=== PATIENT | female | born 1985 | race Caucasian/White ===

== ENCOUNTER 2017-05-11 09:56 | Emergency (ER) | payer OTHER ==
[2017-05-11 10:08] VITALS: BP 111/72
[2017-05-11] MEDS ORDERED: TORADOL IM ONE (10:41)
--- NOTE | 2017-05-11 10:46 | Emergency Department Report ---
ED ENT HPI - General Chief complaint: Dental/Oral Stated complaint: TOOTH ACHES Time Seen by Provider: 05/11/17 10:10 Source: patient Mode of arrival: Ambulatory Limitations: No Limitations - History of Present Illness Initial comments: This is a 31-year-old female nontoxic, well nourished in appearance, no acute signs of distress presents to the ED with c/o of acute on chronic toothache. Patient stated toothache has been getting worse over the days. Patient denies any facial swelling, fever, chills, nausea, vomiting, headache or stiff neck. She denies any chest pain or shortness of breath. Patient denies any drooling or hoarseness. Denies any allergies or significant past medical history. MD complaint: tooth pain -: year(s) Location: tooth # (13) 1 - toothache Severity: mild Severity scale (0 -10): 8 Quality: aching Consistency: constant Improves with: none Worsens with: none Associated Symptoms: gum swelling, toothache. denies: fever, cough, pain with swallowing, sore throat, tinnitus, hearing loss, discharge from ear, rhinorrhea - Related Data Previous Rx's Medication Instructions Recorded Last Taken Type Chlorhexidine Mouthwash [Peridex] 15 ml MM BID #1 bottle 05/11/17 Unknown Rx Clindamycin [Clindamycin CAP] 450 mg PO Q8HR 7 Days capsule 05/11/17 Unknown Rx Ibuprofen [Motrin] 600 mg PO Q8H PRN #30 tablet 05/11/17 Unknown Rx traMADol [Ultram] 50 mg PO Q6HR PRN #12 tablet 05/11/17 Unknown Rx Allergies Allergy/AdvReac Type Severity Reaction Status Date / Time No Known Allergies Allergy Unverified 05/11/17 10:08 ED Dental HPI - General Chief complaint: Dental/Oral Stated complaint: TOOTH ACHES Time Seen by Provider: 05/11/17 10:10 Source: patient Mode of arrival: Ambulatory Limitations: No Limitations - Related Data Previous Rx's Medication Instructions Recorded Last Taken Type Chlorhexidine Mouthwash [Peridex] 15 ml MM BID #1 bottle 05/11/17 Unknown Rx Clindamycin [Clindamycin CAP] 450 mg PO Q8HR 7 Days capsule 05/11/17 Unknown Rx Ibuprofen [Motrin] 600 mg PO Q8H PRN #30 tablet 05/11/17 Unknown Rx traMADol [Ultram] 50 mg PO Q6HR PRN #12 tablet 05/11/17 Unknown Rx Allergies Allergy/AdvReac Type Severity Reaction Status Date / Time No Known Allergies Allergy Unverified 05/11/17 10:08 ED Review of Systems ROS: Stated complaint: TOOTH ACHES Other details as noted in HPI Constitutional: denies: chills, fever Eyes: denies: eye pain, eye discharge, vision change ENT: dental pain. denies: ear pain, throat pain Respiratory: denies: cough, shortness of breath, wheezing Cardiovascular: denies: chest pain, palpitations Endocrine: no symptoms reported Gastrointestinal: denies: abdominal pain, nausea, diarrhea Genitourinary: denies: urgency, dysuria, discharge Musculoskeletal: denies: back pain, joint swelling, arthralgia Skin: denies: rash, lesions Neurological: denies: headache, weakness, paresthesias Psychiatric: denies: anxiety, depression Hematological/Lymphatic: denies: easy bleeding, easy bruising ED Past Medical Hx - Past Medical History Previous Medical History?: Yes Hx Psychiatric Treatment: Yes (attempted suicide ) Additional medical history: Dental caries, Hypothyroid - Surgical History Past Surgical History?: No - Social History Smoking Status: Current Every Day Smoker Substance Use Type: Alcohol, Non Opiate Pain - Medications Home Medications: Home Medications Medication Instructions Recorded Confirmed Last Taken Type Chlorhexidine Mouthwash [Peridex] 15 ml MM BID #1 bottle 05/11/17 Unknown Rx Clindamycin [Clindamycin CAP] 450 mg PO Q8HR 7 Days capsule 05/11/17 Unknown Rx Ibuprofen [Motrin] 600 mg PO Q8H PRN #30 tablet 05/11/17 Unknown Rx traMADol [Ultram] 50 mg PO Q6HR PRN #12 tablet 05/11/17 Unknown Rx ED Physical Exam - General Limitations: No Limitations General appearance: alert, in no apparent distress - Head Head exam: Present: atraumatic, normocephalic - Eye Eye exam: Present: normal appearance - ENT ENT exam: Present: mucous membranes moist, TM's normal bilaterally, normal external ear exam - Expanded ENT Exam Expanded Ear exam: Present: normal external inspection Mouth exam: Present: normal external inspection, tongue normal. Absent: drooling, trismus, muffled voice, tongue elevation, laceration Teeth exam: Present: dental caries, fractured tooth # (multiple), dental tenderness # (13), gingival enlargement, other (No facial swelling. ) 1 - Fractured, Dental Tenderness Throat exam: Positive: normal inspection, other (Uvula midline. No abscess or swelling noted. ). Negative: tonsillar erythema, tonsillomegaly, tonsillar exudate, R peritonsillar mass, L peritonsillar mass - Neck Neck exam: Present: normal inspection, full ROM. Absent: tenderness, meningismus, lymphadenopathy, thyromegaly - Respiratory Respiratory exam: Present: normal lung sounds bilaterally. Absent: respiratory distress - Cardiovascular Cardiovascular Exam: Present: regular rate, normal rhythm. Absent: systolic murmur, diastolic murmur, rubs, gallop - GI/Abdominal GI/Abdominal exam: Present: soft, normal bowel sounds - Extremities Exam Extremities exam: Present: normal inspection - Back Exam Back exam: Present: normal inspection - Neurological Exam Neurological exam: Present: alert, oriented X3 - Psychiatric Psychiatric exam: Present: normal affect, normal mood - Skin Skin exam: Present: warm, dry, intact, normal color. Absent: rash ED Course Vital Signs 05/11/17 10:03 Temperature 100.3 F H Pulse Rate 87 Respiratory 18 Rate Blood Pressure 111/72 O2 Sat by Pulse 99 Oximetry - Reevaluation(s) Reevaluation #1: 05/11/17 10:45 Patient is speaking in full sentences with no signs of distress noted. Critical care attestation.: If time is entered above; I have spent that time in minutes in the direct care of this critically ill patient, excluding procedure time. ED Disposition Clinical Impression: Dental caries Disposition: DC-01 TO HOME OR SELFCARE Is pt being admited?: No Does the pt Need Aspirin: No Condition: Stable Instructions: Dental Caries (ED), Gingivitis (ED), Clindamycin (By mouth), Tramadol (By mouth) Additional Instructions: Follow-up with a dentist in 3-5 days or if symptoms worsen and continue return to emergency room as soon as possible. Prescriptions: Chlorhexidine Mouthwash [Peridex] 15 ml MM BID #1 bottle Clindamycin [Clindamycin CAP] 450 mg PO Q8HR 7 Days capsule Ibuprofen [Motrin] 600 mg PO Q8H PRN #30 tablet PRN Reason: Pain traMADol [Ultram] 50 mg PO Q6HR PRN #12 tablet PRN Reason: Pain Referrals: PRIMARY CAREMD [Primary Care Provider] - 3-5 Days GLENDA WILL MD [Staff Physician] - 3-5 Days [facility] [Outside] - 3-5 Days Forms: Work/School Release Form(ED)
== END 2017-05-11 10:58 | disposition home or self-care (01) ==
LOC: ED 09:56
DX: K02.9 Dental caries, unspecified (principal); F17.200 Nicotine dependence, unspecified, uncomplicated; E03.9 Hypothyroidism, unspecified; Z91.5 Personal history of self-harm
CPT/HCPCS: 96372; 99282; J1885